=== PATIENT | female | born 1990 | race Caucasian/White ===

== ENCOUNTER 2017-08-21 15:49 | Emergency (ER) | payer MEDICAID ==
--- NOTE | 2017-08-21 18:06 | EDM.PDOC ---
ED HPI GENERAL MEDICAL PROBLEM - General Chief Complaint: ENT Problem Stated Complaint: SWOLLEN LYMPH NODES Time Seen by Provider: 08/21/17 16:14 Source of Information: Reports: Patient, RN Notes Reviewed - History of Present Illness INITIAL COMMENTS - FREE TEXT/NARRATIVE: 27 show female comes in with swelling of left neck. This is been there for a couple of days. [facility] that evaluated. She did have a white blood count done which did show elevation of her white blood count. She had also had a clinic visit about 4 days ago and was started on prednisone at that time. Following has not gotten better, probably somewhat worse. Localized discomfort to the left side of her neck. She denies sore throat nasal or sinus congestion cough or unusual symptomatology. She's not been having fever or chills. No difficulty swallowing. Left Neck Pain Score (Numeric/FACES): 4 - Related Data Allergies Allergy/AdvReac Type Severity Reaction Status Date / Time morphine Allergy Nausea and Verified 08/21/17 16:06 Vomiting Home Meds: Home Meds . [No Known Home Meds] 08/21/17 [History] Past Medical History - Past Surgical History GI Surgical History: Reports: Cholecystectomy Female Surgical History: Reports: Section Social & Family History - Family History Family Medical History: Noncontributory - Tobacco Use Smoking Status *Q: Current Every Day Smoker Years of Tobacco use: 10 Packs/Tins Daily: 0.5 - Caffeine Use Caffeine Use: Reports: None - Recreational Drug Use Recreational Drug Use: No ED ROS ENT - Review of Systems Review Of Systems: See Below Constitutional: Denies: Fever, Chills HEENT: Denies: Rhinitis, Sinus Problem, Throat Pain Respiratory: Denies: Shortness of Breath, Wheezing, Pleuritic Chest Pain, Cough Cardiovascular: Denies: Chest Pain Endocrine: Denies: Fatigue GI/Abdominal: Denies: Abdominal Pain, Decreased Appetite, Nausea, Vomiting Musculoskeletal: Reports: Other (Swallowing and soreness left lateral anterior neck) Skin: Denies: Rash Neurological: Reports: No Symptoms ED EXAM, ENT - Physical Exam Exam: See Below General Appearance: Alert, No Apparent Distress Eye Exam: Bilateral Eye: PERRL Ears: Normal External Exam, Normal Canal, Normal TMs Nose: Normal Inspection Mouth/Throat: Normal Inspection. No: Dental Pain (There is no dental tenderness ), Gum Swelling, Peritonsillar Mass, Pharyngeal Erythema, Tonsillar Exudates Head: Atraumatic. No: Facial Swelling Neck: Supple, Lymphadenopathy (L) (Mild), Other (She does have very mild swelling of her left neck associated with the lymphadenopathy, there is no warmth or erythema, nothing suggest abscess at this time.) Respiratory/Chest: No Respiratory Distress, Lungs Clear GI/Abdominal: Soft, Non-Tender Back: Normal Inspection Extremities: Normal Inspection, Normal Range of Motion Neurological: Alert, Oriented, No Motor/Sensory Deficits Skin: Dry, Normal Color, No Rash Course - Vital Signs Last Recorded V/S: Last Vital Signs Temp 97.6 F 08/21/17 16:02 Pulse 94 08/21/17 16:02 Resp 16 08/21/17 16:02 BP 129/73 08/21/17 16:02 Pulse Ox 97 08/21/17 16:02 - Orders/Labs/Meds Labs: Laboratory Tests 08/21/17 Range/Units 16:50 WBC 14.75 H (3.98-10.04) K/mm3 RBC 4.94 (3.98-5.22) M/mm3 Hgb 14.5 (11.2-15.7) gm/L Hct 43.4 (34.1-44.9) % MCV 87.9 (79.4-94.8) fl MCH 29.4 (25.6-32.2) pg MCHC 33.4 (32.2-35.5) g/dl RDW Std Deviation 44.0 (36.4-46.3) fL Plt Count 286 (182-369) K/mm3 MPV 8.9 L (9.4-12.3) fl Neutrophils % (Manual) 63 H (40-60) % Band Neutrophils % 0 (0-10) % Lymphocytes % (Manual) 27 (20-40) % Atypical Lymphs % 2 % Monocytes % (Manual) 6 (2-10) % Eosinophils % (Manual) 2 (0.7-5.8) % Basophils % (Manual) 0 L (0.1-1.2) Platelet Estimate Adequate RBC Morph Comment Normal - Re-Assessments/Exams Free Text/Narrative Re-Assessment/Exam: 08/22/17 20:37. We did check a CBC with a manual differential. White blood count is still elevated around 14,700. However she has been on prednisone for 4 days so may well be elevated on that basis. The manual dif is completely normal. I do not see any evidence for bacterial infection at this time. This has been discussed with patient. I am recommending that she have follow-up reevaluation in 10-14 days and follow-up blood count checked at that time. Patient is very agreeable with that plan. Discharge instructions as documented Departure - Departure Time of Disposition: 18:03 Disposition: Home, Self-Care 01 Condition: Fair Clinical Impression: Cervical lymphadenopathy - Discharge Information Referrals: PCP,Not In Area [Primary Care Provider] - Forms: ED Department Discharge Additional Instructions: Your white blood count check here at the ED today was 14,700. Somewhat elevated but very likely from being on prednisone the past 4 days. The distribution of your white blood count today is very normal. There is no evidence for bacterial infection today so antibiotics today are not clinically indicated. Recommend follow-up [facility] or with one of our [facility] medical providers in about 2 weeks for reevaluation, repeat white blood count. Follow-up clinic or ED if symptoms worsening in any way.
== END 2017-08-21 18:10 | disposition home or self-care (01) ==
LOC: JD.ED 15:49
DX: R59.0 Localized enlarged lymph nodes (principal); F17.210 Nicotine dependence, cigarettes, uncomplicated; Z88.5 Allergy status to narcotic agent
CPT/HCPCS: 36415; 85025; 99282; 99284